=== PATIENT | male | born 1970 | race Caucasian/White ===

== ENCOUNTER 2024-03-11 17:10 | Emergency (ER) | payer OTHER ==
[~2024-03-11] VITALS: Ht 182.9 cm; Wt 68.6 kg
[2024-03-11 17:18] VITALS: BP 106/59; PULSE 90; RESP 20; TEMP 100.8; O2SAT 96
[2024-03-11] MEDS ORDERED: CLIN-167 PO (18:10)
== END 2024-03-11 18:24 | disposition home or self-care (01) ==
LOC: ER 17:11
DX: L08.89 Other specified local infections of the skin and subcutaneous tissue (principal)
CPT/HCPCS: 73140; 99283

== ENCOUNTER 2024-03-22 04:28 | Emergency (ER) | payer MEDICARE, OTHER ==
[~2024-03-22] VITALS: Ht 182.9 cm; Wt 72.7 kg
[~2024-03-22 04:28] MED LIST: CLIN-167 PO
[2024-03-22 04:29] VITALS: BP 166/91; PULSE 66; O2SAT 95
[2024-03-22 04:51] VITALS: RESP 18
[2024-03-22] MEDS ORDERED: CLIN150C2 PO (05:07)
[2024-03-22 05:20] VITALS: TEMP 97.4
== END 2024-03-22 05:21 | disposition home or self-care (01) ==
LOC: ER 04:28
DX: J02.9 Acute pharyngitis, unspecified (principal); Z59.00 Homelessness unspecified
CPT/HCPCS: 99283